=== PATIENT | female | born 1995 | race Caucasian/White ===

== ENCOUNTER 2024-11-30 15:45 | Outpatient (CLI) | payer OTHER | END 2024-11-30 16:58 | disposition home or self-care (01) | LOC: NST 15:45 | PROVIDERS: ATTEND Obstetrics & Gynecology Maternal & Fetal Medicine | DX: Z34.83 Encounter for supervision of other normal pregnancy, third trimester (principal) ==

== ENCOUNTER 2024-12-07 14:48 | Outpatient (CLI) | payer OTHER ==
[2024-12-07 15:35] VITALS: BP 125/84
[2024-12-07] MEDS ORDERED: PRENATABS RX T1 EACH PO (18:48)
[2024-12-07] MEDS ORDERED: PROTONIX40 MG PO (18:49)
== END 2024-12-07 16:14 | disposition home or self-care (01) ==
LOC: NST 14:48
PROVIDERS: ATTEND Obstetrics & Gynecology Maternal & Fetal Medicine
DX: Z34.83 Encounter for supervision of other normal pregnancy, third trimester (principal)

== ENCOUNTER 2024-12-07 17:20 | Inpatient (IN) | payer OTHER ==
[~2024-12-07] VITALS: Ht 154.9 cm; Wt 87.1 kg
[2024-12-07] MEDS ORDERED: BETAMETHASONE ACETATE,SOD PHOS 30 MG/5 ML ML ONE (17:40)
[2024-12-07 17:53] VITALS: BP 132/84
[2024-12-07 18:42] LABS: BASO % 0.4 % (0.1-1.2); EOS # 0.08 (0.04-0.54); EOS % 0.5 % (0.7-7.0); LYMPH # 2.80 (1.18-3.74); LYMPH % 17.8 % (19.3-53.1); MEAN PLATELET VOLUME 14.00 fl (9.4-12.4); MONO # 1.26 (0.24-0.82); MONO % 8.0 % (4.7-12.5); NEUT # 11.47 (1.56-6.13); NEUT % 72.9 % (34.0-71.1); RED CELL DISTRIBUTION WIDTH 13.9 % (11.6-14.4)
[2024-12-07] MEDS ORDERED: PRENATABS RX T1 EACH PO (18:48)
[2024-12-07] MEDS ORDERED: PROTONIX40 MG PO (18:49)
[2024-12-07] MEDS ORDERED: BETAMETHASONE ACETATE,SOD PHOS 30 MG/5 ML ML IM NR (19:00)
[2024-12-07] MEDS ORDERED: RINGERS SOLUTION,LACTATED 1,000 ML IV SCH (19:00)
[2024-12-07 19:05] LABS: INR < 0.93
[2024-12-07 19:11] LABS: ALT/SGPT 21.0 U/L (12-78); AST/SGOT 20.0 U/L (15-37); BILIRUBIN TOTAL 0.21 mg/dL (0.3-1.2); BUN CREA RATIO 13.0 (7.0-25.0); CREATININE SERUM 0.6 mg/dL (0.55-1.02); GFR 119.92; GLOBULINA 3.4 G/DL (2.4-3.5); GLUCOSE FASTING 62.0 mg/dL (65-100); OSMOLALITY SERUM 276.0 MOSM/KG (275-295)
[2024-12-07 20:30] VITALS: BP 134/86
[2024-12-07 23:32] VITALS: BP 103/65; O2SAT 97
[2024-12-08 04:18] VITALS: BP 112/67
[2024-12-08 06:28] VITALS: BP 107/61; O2SAT 99
[2024-12-08 15:15] VITALS: BP 119/75; O2SAT 99
[2024-12-08] MEDS ORDERED: BETAMETHASONE ACETATE,SOD PHOS 30 MG/5 ML ML IM NR (19:00)
[2024-12-08 19:45] VITALS: BP 125/75
[2024-12-08 23:10] VITALS: BP 108/67
[2024-12-09 03:30] VITALS: BP 124/72
[2024-12-09 06:21] VITALS: BP 122/72; O2SAT 97
[2024-12-09] MEDS ORDERED: ERYTHROMYCIN BASE OPHT 1GM EACH TUBE OP ONE (08:13)
[2024-12-09] MEDS ORDERED: OXYTOCIN 10 UNITS/ML VIAL ONE (08:13)
[2024-12-09] MEDS ORDERED: MORPHINE SULFATE 4 MG/ML CARTRIDGE IV PRN (08:45)
[2024-12-09] MEDS ORDERED: OXYTOCIN 1,000 ML IV ONE (09:00)
[2024-12-09] MEDS ORDERED: RINGERS SOLUTION,LACTATED 1,000 ML IV SCH (09:00)
[2024-12-09] MEDS ORDERED: SIMETHICONE 125 MG CAPSULE PO SCH (09:00)
[2024-12-09] MEDS ORDERED: GABAPENTIN 300 MG CAPSULE PO SCH (09:00)
[2024-12-09] MEDS ORDERED: DOCUSATE SODIUM 100MG CAP PO SCH (09:00)
[2024-12-09] MEDS ORDERED: CEFAZOLIN SODIUM 1,000 MG VIAL ONE (09:33)
[2024-12-09] MEDS ORDERED: KETOROLAC TROMETHAMINE 30 MG VIAL ONE (11:21)
[2024-12-09] MEDS ORDERED: KETOROLAC TROMETHAMINE 30 MG VIAL IV ONE (11:30)
[2024-12-09] MEDS ORDERED: ONDANSETRON HCL 2 MG/ML VIAL IV SCH (12:00)
[2024-12-09] MEDS ORDERED: KETOROLAC TROMETHAMINE 30 MG VIAL IV SCH (12:00)
[2024-12-09] MEDS ORDERED: ACETAMINOPHEN 500 MG GEL..CAP PO SCH (12:00)
[2024-12-09] MEDS ORDERED: GABAPENTIN 300 MG CAPSULE PO ONE (15:56)
[2024-12-09] MEDS ORDERED: SIMETHICONE 125 MG CAPSULE PO ONE (15:56)
[2024-12-09 18:13] VITALS: BP 134/77
[2024-12-10] VITALS: BP 114/73
[2024-12-10 08:00] VITALS: BP 134/84
[2024-12-10] MEDS ORDERED: KETOROLAC TROMETHAMINE 10 MG TABLET PO SCH (08:00)
[2024-12-10] MEDS ORDERED: OxyCODONE HCL 5 MG TABLET (ROXICODONE) PO PRN (08:00)
[2024-12-10 08:05] LABS: BASO % 0.2 % (0.1-1.2); EOS # 0.02 (0.04-0.54); EOS % 0.1 % (0.7-7.0); LYMPH # 2.45 (1.18-3.74); LYMPH % 13.7 % (19.3-53.1); MEAN PLATELET VOLUME 14.00 fl (9.4-12.4); MONO # 1.61 (0.24-0.82); MONO % 9.0 % (4.7-12.5); NEUT # 13.69 (1.56-6.13); NEUT % 76.3 % (34.0-71.1); RED CELL DISTRIBUTION WIDTH 14.4 % (11.6-14.4)
[2024-12-10 18:50] VITALS: BP 121/79
[2024-12-11] VITALS: BP 117/76
[2024-12-11 16:00] VITALS: BP 114/76
[2024-12-12 00:17] VITALS: BP 124/82; O2SAT 98
[2024-12-12 08:00] VITALS: BP 128/83
== END 2024-12-12 18:36 | disposition home or self-care (01) | DRG 786 ==
LOC: LDR 17:20 → O/R 12-09 11:05 → OB/GYN 12-09 11:53
PROVIDERS: Obstetrics & Gynecology; ADMIT Obstetrics & Gynecology Maternal & Fetal Medicine; ATTEND Obstetrics & Gynecology Maternal & Fetal Medicine
PROC: 4A1HXCZ Monitoring of Products of Conception, Cardiac Rate, External Approach (ICD-10-PCS; 2024-12-07)
PROC: BY4FZZZ Ultrasonography of Third Trimester, Single Fetus (ICD-10-PCS; 2024-12-08)
PROC: BY47ZZZ Ultrasonography of Fetal Umbilical Cord (ICD-10-PCS; 2024-12-08)
PROC: 10D00Z1 Extraction of Products of Conception, Low, Open Approach (ICD-10-PCS; principal; 2024-12-09 23:45)
DX: O36.5930 Maternal care for other known or suspected poor fetal growth, third trimester, not applicable or unspecified (principal); O60.14X0 Preterm labor third trimester with preterm delivery third trimester, not applicable or unspecified; O36.8130 Decreased fetal movements, third trimester, not applicable or unspecified; O26.843 Uterine size-date discrepancy, third trimester; Z3A.35 35 weeks gestation of pregnancy; Z37.0 Single live birth